=== PATIENT | female | born 1975 | race Caucasian/White ===

== ENCOUNTER 2018-08-25 10:00 | Emergency (ER) | payer OTHER, SELFPAY ==
[2018-08-25] MEDS ORDERED: Ondansetron PF 4 MG/2 ML Vial ONE (10:29)
[2018-08-25] MEDS ORDERED: Morphine 4 MG/ML VIAL ONE (10:29)
[2018-08-25 10:36] LABS: Pregnancy Test - Urine (BHCG) Negative (Negative); Pregu Control Background? CLEAR/WHITE (CLR/WHITE); Pregu Control Bar Appear? YES (CONTROL BAR); Specific Gravity 1.025 (1.002-1.036)
[2018-08-25 10:40] LABS: Clarity Cloudy (Clear); Glucose, Urine (Dipstick) Negative (Negative); Leukocyte Negative (Negative); Nitrite Negative (Negative); Protein, Urine (Dipstick) 30 mg/dL (Neg-Trace); Urobilinogen 0.2 mg/dL (0.2-1.0)
[2018-08-25 10:41] LABS: Bilirubin Negative (Negative); Blood, Urine Large (Negative)
[2018-08-25 10:42] LABS: #Basophils 0.1 thou/uL (0.0-0.2); #Eosinphils 0.2 thou/uL (0.0-0.7); #Lymphocytes 2.4 thou/uL (1.20-3.40); #Monocytes 0.8 thou/uL (0.11-0.59); #Neutrophils 6.9 thou/uL (1.40-6.50); %Basophils 1.4 % (0.0-1.0); %Eosinophils 2.1 % (0.0-10.0); %Lymphocytes 22.8 % (21.0-51.0); %Monocytes 7.7 % (0.0-10.0); Hemoglobin 13.7 g/dL (12.0-16.0); Mean Corpuscular HGB CONC 31.4 g/dL (32.0-36.0); Mean Corpuscular Hemoglobin 25.6 pg (27.0-31.0); Mean Corpuscular Volume 81.6 fL (78.0-98.0); Mean Platelet Volume 8.9 fL (7.4-10.4); Platelet Count 298 thou/uL (130-400); RBC Distribution Width 16.2 % (11.5-14.5); Red Blood Cell (RBC) Count 5.36 mill/uL (4.20-5.40); White Blood Cell (WBC) Count 10.5 thou/uL (4.8-10.8)
[2018-08-25 10:44] LABS: Bacteria/HPF 1+ HPF (None Seen); Crystals/HPF 2+ AMORPH URATES HPF (Negative); RBC/HPF 0-3 HPF (0-3); Squamous Epithelial 0-3 HPF (0-3); WBC/HPF 0-3 HPF (0-3)
[2018-08-25 10:53] LABS: ALT (SGPT) 13 U/L (8-55); AST (SGOT) 13 U/L (5-34); Albumin 4.3 g/dL (3.5-5.0); Alkaline Phosphatase 89 U/L (40-150); Anion Gap 14 mmol/L (10-20); BUN (Urea Nitrogen) 9 mg/dL (7.0-18.7); Bilirubin, Total 0.4 mg/dL (0.2-1.2); Calc. Creatinine Clearance 0 mL/min (70-130); Calcium 9.2 mg/dL (7.8-10.44); Carbon Dioxide 23 mmol/L (22-29); Chloride 106 mmol/L (98-107); Estimated GFR-MDRD Greater than 90; Globulin 2.9 g/dL (2.4-3.5); Glucose 105 mg/dL (70-105); Potassium 4.2 mmol/L (3.5-5.1); Protein, Total 7.2 g/dL (6.0-8.3)
[2018-08-25 10:54] LABS: Sodium 139 mmol/L (136-145)
--- NOTE | 2018-08-25 20:27 | CT ---
CT ABDOMEN AND PELVIS WITH CONTRAST 08/25/18 Comparison is made with the prior study dated 10/05/11. Axial slices were acquired followed by coronal and sagittal reconstructions. The lung bases are clear. Although it is very difficult to see on today's scan due to the phase of co ntrast, there is an enhancing mass centrally as before. Its characteristics before were typical of a hemangioma. On today's study it is actually 3 cm smaller than before, measuring about 5 cm in diamete r. The spleen, pancreas, adrenal glands, and kidneys showed no acute findings. There has been a prior cholecystectomy. The bowel shows no dilation or inflammatory change. A small fat-filled umbilical hernia was noted. A small cystic area is seen associated with it but is much smaller than it was in 2012. No free air or free fluid was seen. There is a 4.8 cm left ovarian cyst present. Additionally, there appears to be about a 2 cm cyst in t he right ovary. The uterus itself has a rather lumpy echotexture and I cannot tell if the endometrium is thickened or if there might be mass here. This certainly deserves follow-up. Ultrasound is recomm ended. Otherwise, there were no pelvic masses, fluid collections, or inflammatory changes. IMPRESSION: 1. 4.8 cm left ovarian cyst and 2+ cm right ovarian cyst. Ultrasound follow-up recommended. 2. Rather bulky uterus which is most likely due to fibroids. There is question about the central portions around the endometrium if there is thickening or pathology here. Again, ultrasound of the p bhanu is recommended to sort this out better. 3. 5 cm central hepatic mass, seen very poorly on this study. Definitely smaller than the 2012 e xam and almost certainly a hemangioma. 4. Findings and discussion with Dr. Patel at 1128 on 08/25/18. POS: HOME
[2018-08-28 00:29] LABS: Chlamydia by PCR Not Detected (NotDetected); GC by PCR Not Detected (NotDetected)
== END 2018-08-25 11:41 | disposition home or self-care (01) ==
LOC: BURERS 10:00
DX: N83.202 Unspecified ovarian cyst, left side (principal); D25.9 Leiomyoma of uterus, unspecified; F17.210 Nicotine dependence, cigarettes, uncomplicated
CPT/HCPCS: 74177; 80053; 81003; 81015; 81025; 85025; 87480; 87491; 87510; 87591; 87660; 96374; 96375; J2270; J2405

== ENCOUNTER 2022-03-29 18:49 | Inpatient (IN) | payer OTHER, SELFPAY ==
[2022-03-29 19:54] LABS: Hemoglobin 8.5 g/dL (12.0-16.0); Mean Corpuscular HGB CONC 29.1 g/dL (32.0-36.0); Mean Corpuscular Hemoglobin 18.1 pg (27.0-31.0); Mean Corpuscular Volume 62.2 fl (78.0-98.0); Mean Platelet Volume 7.9 fL (7.4-10.4); Platelet Count 362 10x3/uL (130-400); RBC Distribution Width 17.2 % (11.5-14.5)
[2022-03-29] MEDS ORDERED: cefTRIAXone\\ROCEPHIN 2 GM VIAL ONE (20:09)
[2022-03-29] MEDS ORDERED: Azithromycin 500 MG VIAL ONE (20:09)
[2022-03-29 20:10] LABS: ALT (SGPT) 32 U/L (8-55); AST (SGOT) 42 U/L (5-34); Albumin 4.1 g/dL (3.5-5.0); Alkaline Phosphatase 95 U/L (40-110); Anion Gap 14 mmol/L (10-20); BUN (Urea Nitrogen) 10 mg/dL (7.0-18.7); Bilirubin, Total 0.3 mg/dL (0.2-1.2); Calc. Creatinine Clearance 0 mL/min (70-130); Calcium 8.4 mg/dL (7.8-10.44); Carbon Dioxide 27 mmol/L (22-29); Chloride 102 mmol/L (98-107); Estimated GFR 109; Globulin 3.2 g/dL (2.4-3.5); Glucose 123 mg/dL (70-105); Protein, Total 7.3 g/dL (6.0-8.3); Sodium 140 mmol/L (136-145)
[2022-03-29] MEDS ORDERED: Potassium Chloride 20 MEQ TAB ONE (20:24)
[2022-03-29 20:25] LABS: Anisocytosis SLIGHT = 6-15 cells (100X) (0-5/hpf); Band 18 % (5-11); Hypochromia SLIGHT = 6-15 cells (100X) (0-5/hpf); Lymphocytes 19 % (21-51); MDiff Complete? YES; Microcytosis MODERATE=15-30 cells (100X) (0-5/hpf); Monocytes 4 % (0-10); Neutrophil 55 % (42-75); Ovalocytes MODERATE= 6-15 cells (100X) (0-1/hpf); Platelet Morphology Comment Appears Adequate; Reactive Lymphocytes 1 % (0-10); Reflex for Review?? NO
[2022-03-29 21:01] LABS: SARS-CoV-2 NAA Rapid Test Not Detected (NotDetected)
[2022-03-29 22:17] VITALS: BMI 49.6
[2022-03-29] MEDS ORDERED: Morphine 4 MG/ML VIAL SLOW IVP PRN (23:09)
[2022-03-29] MEDS ORDERED: Promethazine HCl 12.5 MG in Sodium Chloride 0.9% 100 ML IVPB PRN (23:12)
[2022-03-29] MEDS ORDERED: Acetaminophen 325 MG TAB PO PRN (23:15)
[2022-03-30] MEDS ORDERED: Ferrous Sulfate 325 MG TAB PO SCH (08:45)
[2022-03-30] MEDS ORDERED: Ondansetron ODT 4 MG TAB PO PRN (09:11)
[2022-03-30] MEDS: Nicotine 21 MG PATCH TD SCH (10:05)
[2022-03-30] MEDS: Oseltamivir 75 MG CAP PO SCH ×2 (10:06→20:34)
[2022-03-30] MEDS: Benzonatate 100 MG CAP PO PRN (10:06)
[2022-03-30] MEDS: cefTRIAXone\\ROCEPHIN 1 GM in Sodium Chloride 0.9% 100 ML IVPB SCH (10:08)
[2022-03-30] MEDS: Azithromycin 500 MG in Sodium Chloride 0.9% 250 ML 250 ML IVPB SCH (11:00)
[2022-03-30] MEDS ORDERED: Loperamide HCl 2 MG CAP PO PRN (20:56)
[2022-03-30] MEDS ORDERED: Loperamide HCl 2 MG CAP PO SCH (21:00)
[2022-03-31 05:53] LABS: ALT (SGPT) 23 U/L (8-55); AST (SGOT) 31 U/L (5-34); Albumin 3.6 g/dL (3.5-5.0); Anion Gap 14 mmol/L (10-20); BUN (Urea Nitrogen) 8 mg/dL (7.0-18.7); Bilirubin, Total 0.3 mg/dL (0.2-1.2); Calc. Creatinine Clearance 261 mL/min (70-130); Calcium 8.3 mg/dL (7.8-10.44); Carbon Dioxide 28 mmol/L (22-29); Chloride 104 mmol/L (98-107); Estimated GFR 111; Globulin 2.7 g/dL (2.4-3.5); Potassium 3.9 mmol/L (3.5-5.1); Protein, Total 6.3 g/dL (6.0-8.3); Sodium 142 mmol/L (136-145)
[2022-03-31 06:13] LABS: Alkaline Phosphatase 84 U/L (40-110); Glucose 119 mg/dL (70-105)
[2022-03-31 06:20] LABS: #Lymphocytes 1.2 thou/uL (1.20-3.40); #Monocytes 0.5 thou/uL (0.11-0.59); #Neutrophils 2.6 thou/uL (1.40-6.50); %Basophils 0.3 % (0.0-1.0); %Eosinophils 1.1 % (0.0-10.0); %Lymphocytes 27.6 % (21.0-51.0); %Monocytes 12.4 % (0.0-10.0); %Neutrophils 58.6 % (42.0-75.0); Hemoglobin 8.5 g/dL (12.0-16.0); Mean Corpuscular HGB CONC 29.5 g/dL (32.0-36.0); Mean Corpuscular Hemoglobin 18.4 pg (27.0-31.0); Mean Corpuscular Volume 62.3 fl (78.0-98.0); Platelet Count 346 10x3/uL (130-400); Red Blood Cell (RBC) Count 4.61 mill/uL (4.20-5.40); Reflex for Review?? NO; White Blood Cell (WBC) Count 4.4 10x3/uL (4.8-10.8)
[2022-03-31 06:21] LABS: MDiff Complete? YES; Microcytosis MODERATE=15-30 cells (100X) (0-5/hpf); Ovalocytes MODERATE= 6-15 cells (100X) (0-1/hpf); Platelet Morphology Comment Appears Adequate; Poikilocytosis MODERATE=16-30 cells (100X) (0-5/hpf); Polychromasia SLIGHT = 2-3 cells (100X) (0-2/hpf)
[2022-03-31] MEDS: Azithromycin 500 MG in Sodium Chloride 0.9% 250 ML 250 ML IVPB SCH (09:06)
[2022-03-31] MEDS: Ferrous Sulfate 325 MG TAB PO SCH (09:07)
[2022-03-31] MEDS: Saccharomyces boulardii 250 MG CAP PO SCH (09:07)
[2022-03-31] MEDS: Benzonatate 100 MG CAP PO PRN ×2 (09:08→09:11)
[2022-03-31] MEDS: Oseltamivir 75 MG CAP PO SCH ×2 (09:09→20:42)
[2022-03-31] MEDS: Nicotine 21 MG PATCH TD SCH (09:11)
[2022-03-31] MEDS: cefTRIAXone\\ROCEPHIN 1 GM in Sodium Chloride 0.9% 100 ML IVPB SCH (11:36)
[2022-04-01] MEDS: Nicotine 21 MG PATCH TD SCH (08:16)
[2022-04-01] MEDS: Saccharomyces boulardii 250 MG CAP PO SCH (08:16)
[2022-04-01] MEDS: Oseltamivir 75 MG CAP PO SCH (08:16)
[2022-04-01] MEDS: Ferrous Sulfate 325 MG TAB PO SCH (08:16)
[2022-04-01] MEDS: Azithromycin 500 MG in Sodium Chloride 0.9% 250 ML 250 ML IVPB SCH (08:19)
[2022-04-01] MEDS: cefTRIAXone\\ROCEPHIN 1 GM in Sodium Chloride 0.9% 100 ML IVPB SCH (09:57)
[2022-04-01 11:24] VITALS: BP 122/76; TEMP 98.1
== END 2022-04-01 11:32 | disposition home or self-care (01) | DRG 194 ==
LOC: BURERS 18:49 → BURMED 21:56
PROVIDERS: ADMIT Family Medicine; ATTEND Family Medicine
DX: J09.X1 Influenza due to identified novel influenza A virus with pneumonia (principal); Z68.42 Body mass index [BMI] 45.0-49.9, adult; I10 Essential (primary) hypertension; F17.210 Nicotine dependence, cigarettes, uncomplicated; Z20.822 Contact with and (suspected) exposure to COVID-19; E87.6 Hypokalemia; E66.9 Obesity, unspecified; D64.9 Anemia, unspecified; Z90.49 Acquired absence of other specified parts of digestive tract; Z98.51 Tubal ligation status
CPT/HCPCS: 36415; 71045; 80053; 83605; 83880; 85025; 87040; 93005; 96365; 96367; J0456; J0696; J3490; J7050; Q0162

== ENCOUNTER 2022-04-09 13:44 | Outpatient (CLI) | payer OTHER | END 2022-04-09 13:45 | disposition home or self-care (01) | LOC: BURRAD 13:44 | PROVIDERS: ATTEND Family Medicine | DX: J16.8 Pneumonia due to other specified infectious organisms (principal); R91.8 Other nonspecific abnormal finding of lung field | CPT/HCPCS: 71046 ==

== ENCOUNTER 2022-10-02 12:14 | Emergency (ER) | payer OTHER ==
[2022-10-02 12:52] LABS: #Basophils 0.1 thou/uL (0.0-0.2); #Eosinphils 0.2 thou/uL (0.0-0.7); #Lymphocytes 1.1 thou/uL (1.20-3.40); #Monocytes 0.7 thou/uL (0.11-0.59); #Neutrophils 6.8 thou/uL (1.40-6.50); %Basophils 1.3 % (0.0-1.0); %Eosinophils 1.8 % (0.0-10.0); %Lymphocytes 12.7 % (21.0-51.0); %Monocytes 7.9 % (0.0-10.0); %Neutrophils 76.3 % (42.0-75.0); Anisocytosis SLIGHT = 6-15 cells (100X) (0-5/hpf); Elliptocytes SLIGHT = 2-5 cells (100X) (0-1/hpf); Hematocrit 28.3 % (36.0-47.0); Hemoglobin 7.9 g/dL (12.0-16.0); Hypochromia SLIGHT = 6-15 cells (100X) (0-5/hpf); MDiff Complete? YES; Mean Corpuscular HGB CONC 27.8 g/dL (32.0-36.0); Mean Platelet Volume 6.8 fL (7.4-10.4); Microcytosis SLIGHT = 6-15 cells (100X) (0-5/hpf); Ovalocytes SLIGHT = 2-5 cells (100X) (0-1/hpf); Platelet Count 412 10x3/uL (130-400); Poikilocytosis SLIGHT = 6-15 cells (100X) (0-5/hpf); RBC Distribution Width 17.6 % (11.5-14.5); Red Blood Cell (RBC) Count 4.63 mill/uL (4.20-5.40); Tear Drops SLIGHT = 2-5 cells (100X) (0-1/hpf); White Blood Cell (WBC) Count 8.9 10x3/uL (4.8-10.8)
[2022-10-02 13:00] LABS: ALT (SGPT) 12 U/L (8-55); AST (SGOT) 14 U/L (5-34); Albumin 4.1 g/dL (3.5-5.0); Alkaline Phosphatase 78 U/L (40-110); Anion Gap 15 mmol/L (10-20); BUN (Urea Nitrogen) 8 mg/dL (7.0-18.7); Bilirubin, Total 0.4 mg/dL (0.2-1.2); Calc. Creatinine Clearance 0 mL/min (70-130); Calcium 8.8 mg/dL (7.8-10.44); Carbon Dioxide 24 mmol/L (22-29); Chloride 105 mmol/L (98-107); Estimated GFR 104; Glucose 143 mg/dL (70-105); Potassium 3.4 mmol/L (3.5-5.1); Protein, Total 7.1 g/dL (6.0-8.3); Sodium 141 mmol/L (136-145)
== END 2022-10-02 13:29 | disposition home or self-care (01) ==
LOC: BURERS 12:14
DX: D64.9 Anemia, unspecified (principal); G47.00 Insomnia, unspecified; I10 Essential (primary) hypertension; F17.210 Nicotine dependence, cigarettes, uncomplicated; Z79.899 Other long term (current) drug therapy
CPT/HCPCS: 36415; 80053; 85025; 99284

== ENCOUNTER 2023-12-08 19:33 | Emergency (ER) | payer MEDICAID, OTHER ==
[2023-12-08] MEDS ORDERED: Ketorolac Tromethamine 30 MG (1 mL) VIAL ONE (20:10)
[2023-12-08 20:28] LABS: ALT (SGPT) 8 U/L (8-55); AST (SGOT) 9 U/L (5-34); Albumin 3.4 g/dL (3.5-5.0); Alkaline Phosphatase 92 U/L (40-110); Anion Gap 12 mmol/L (10-20); BUN (Urea Nitrogen) 9 mg/dL (7.0-18.7); Bilirubin, Total 0.3 mg/dL (0.2-1.2); Calc. Creatinine Clearance 0 mL/min (70-130); Calcium 9.2 mg/dL (7.8-10.44); Carbon Dioxide 25 mmol/L (22-29); Chloride 107 mmol/L (98-107); Estimated GFR 109; Globulin 3.6 g/dL (2.4-3.5); Glucose 132 mg/dL (70-105); Potassium 4.1 mmol/L (3.5-5.1); Sodium 140 mmol/L (136-145)
[2023-12-08 20:32] LABS: Mean Corpuscular HGB CONC 26.8 g/dL (32.0-36.0); Mean Corpuscular Hemoglobin 17.2 pg (27.0-31.0); Mean Corpuscular Volume 64.3 fl (78.0-98.0); Platelet Count 372 10x3/uL (130-400); RBC Distribution Width 16.8 % (11.5-14.5); Red Blood Cell (RBC) Count 4.04 mill/uL (4.20-5.40); White Blood Cell (WBC) Count 7.2 10x3/uL (4.8-10.8)
[2023-12-08 20:42] LABS: #Basophils 0.1 thou/uL (0.0-0.2); #Eosinophils 0.2 thou/uL (0.0-0.7); #Lymphocytes 1.2 thou/uL (1.20-3.40); #Monocytes 0.7 thou/uL (0.11-0.59); %Basophils 1.2 % (0.0-1.0); %Eosinophils 3.1 % (0.0-10.0); %Lymphocytes 16.3 % (21.0-51.0); %Neutrophils 69.4 % (42.0-75.0); Hypochromia MODERATE=16-30 cells (100X) (0-5/hpf); MDiff Complete? YES; Microcytosis SLIGHT = 6-15 cells (100X) (0-5/hpf); Platelet Adequacy Comment Appears Adequate; Reflex for Review?? YES
[2023-12-08 21:09] LABS: Bilirubin Negative (Negative); Blood, Urine Negative (Negative); Clarity Clear (Clear); Glucose, Urine (Dipstick) Negative (Negative); Ketone, Urine Negative (Negative); Leukocyte Negative (Negative); Nitrite Negative (Negative); Protein, Urine (Dipstick) Negative (Neg-Trace); Urobilinogen 0.2 mg/dL (Less than 2); pH, Urine 5.5 (5.0-9.0)
[2023-12-08 21:11] LABS: Specific Gravity, Urine Greater/Equal 1.030 (1.005-1.030)
[2023-12-08 21:17] LABS: Bacteria/HPF Rare-Few HPF (None Seen); CAUTI Indications for Culture Dysuria,urgency,freq; RBC/HPF 0-3 HPF (0-3); WBC/HPF 0-3 HPF (0-3)
[2023-12-08 21:18] LABS: Urine Culture Reflex No No
[2023-12-08] MEDS ORDERED: Cyclobenzaprine 10 MG TAB ONE (21:36)
== END 2023-12-08 21:45 | disposition home or self-care (01) ==
LOC: BURERS 19:33
DX: R10.9 Unspecified abdominal pain (principal); D50.9 Iron deficiency anemia, unspecified; I10 Essential (primary) hypertension; F17.210 Nicotine dependence, cigarettes, uncomplicated
CPT/HCPCS: 74176; 80053; 81001; 85025; 85060; 96374; J1885

== ENCOUNTER 2024-11-14 22:24 | Emergency (ER) | payer OTHER ==
[2024-11-14] MEDS ORDERED: Ondansetron PF 4 MG/2 ML Vial ONE (23:28)
[2024-11-14 23:34] LABS: BHCG - Serum Negative (NEGATIVE); Pregs Control Background? CLEAR/WHITE (CLR/WHITE); Pregs Control Bar Appear? YES (CONTROL BAR)
[2024-11-14 23:39] LABS: #Basophils 0.1 thou/uL (0.0-0.2); #Eosinophils 0.4 thou/uL (0.0-0.7); #Lymphocytes 1.3 thou/uL (1.20-3.40); #Monocytes 0.8 thou/uL (0.11-0.59); #Neutrophils 4.8 thou/uL (1.40-6.50); %Basophils 1.1 % (0.0-1.0); %Eosinophils 4.9 % (0.0-10.0); %Lymphocytes 17.4 % (21.0-51.0); %Monocytes 11.4 % (0.0-10.0); %Neutrophils 65.3 % (42.0-75.0); Hematocrit 39.7 % (36.0-47.0); Hemoglobin 12.5 g/dL (12.0-16.0); MDiff Complete? YES; Mean Corpuscular Hemoglobin 20.6 pg (27.0-31.0); Mean Corpuscular Volume 65.7 fl (78.0-98.0); Microcytosis MODERATE=15-30 cells (100X) (0-5/hpf); Ovalocytes SLIGHT = 2-5 cells (100X) (0-1/hpf); Platelet Adequacy Comment Appears Increased; Platelet Count 443 10x3/uL (130-400); Red Blood Cell (RBC) Count 6.04 mill/uL (4.20-5.40); White Blood Cell (WBC) Count 7.3 10x3/uL (4.8-10.8)
[2024-11-14 23:42] LABS: ALT (SGPT) 14 U/L (Less than 34); AST (SGOT) 18 U/L (11-34); Albumin 3.8 g/dL (3.1-4.5); Alkaline Phosphatase 113 U/L (40-110); Anion Gap 18 mmol/L (10-20); BUN (Urea Nitrogen) 16 mg/dL (7.0-18.7); Bilirubin, Total 0.3 mg/dL (0.3-1.2); Calc. Creatinine Clearance 0 mL/min (70-130); Calcium 9.3 mg/dL (7.8-10.44); Carbon Dioxide 24 mmol/L (22-29); Chloride 102 mmol/L (98-107); Globulin 3.5 g/dL (2.4-3.5); Glucose 131 mg/dL (70-105); Lipase 42 U/L (8-78); Potassium 4.1 mmol/L (3.5-5.1); Sodium 140 mmol/L (136-145)
[2024-11-14] MEDS ORDERED: Diphenoxylate HCl/Atropine Tablet ONE (23:51)
== END 2024-11-15 00:21 | disposition home or self-care (01) ==
LOC: BURERS 22:24
DX: E86.0 Dehydration (principal); R11.10 Vomiting, unspecified; I10 Essential (primary) hypertension; F17.210 Nicotine dependence, cigarettes, uncomplicated
CPT/HCPCS: 80053; 83605; 83690; 84703; 85025; 96361; 96374